=== PATIENT | male | born 1985 | race Caucasian/White ===

== ENCOUNTER 2020-06-14 16:06 | Emergency (ER) | payer OTHER, SELFPAY ==
[2020-06-14 16:23] VITALS: BP 148/83; PULSE 78; RESP 20; TEMP 36.5; O2SAT 98
--- NOTE | 2020-06-14 16:34 | ED.SKABFB ---
HPI - Skin/Abscess/Foreign Bdy General Chief complaint: Skin/Abscess/Foreign Body Stated complaint: splinter on right foot Time Seen by Provider: 06/14/20 16:22 Source: patient and RN notes reviewed Mode of arrival: ambulatory Limitations: no limitations History of Present Illness HPI narrative: Patient presents today complaining of a possible splinter to the bottom of his right foot. He did have a splinter enter the bottom of his foot 6 days ago at home from his hardwood floor. 2 days ago he was digging in his foot and removed a piece of wood and some pus drainage. He is unsure if any more would remains. He does have some pain with ambulation. He occasionally takes some Advil for symptoms. He is not up-to-date on his tetanus vaccine. Related Data Allergies Allergy/AdvReac Type Severity Reaction Status Date / Time No Known Allergies Allergy Verified 06/14/20 16:13 Review of Systems Review of Systems: Narrative: CONSTITUTIONAL: Denies body aches, fever, chills, or sweats. EYES: Denies visual changes, redness, or discharge. ENT: Denies rhinorrhea, congestion, sore throat, or otalgia. CARDIOVASCULAR: Denies chest pain, palpitations, or edema. RESPIRATORY: Denies cough or dyspnea. GASTROINTESTINAL: Denies abdominal pain, nausea, vomiting, or diarrhea. GENITOURINARY: Denies dysuria or hematuria. SKIN: Denies rash, itching. + Possible splinter to the bottom of the right foot MUSCULOSKELETAL: Denies back pain, joint pain, or myalgia. NEUROLOGIC: Denies headache, numbness, tingling, or weakness. PSYCH: Denies depression or anxiety. [facility] Past Medical History Medical History (Updated 06/14/20 @ 16:41 by Deena Mendoza, [facility], ) No pertinent past medical history Social History Social History Gender identity (if verbalized by the patient): Male Comments At time of signature, I have reviewed and agree with nursing past medical, surgical, social and family history unless otherwise noted. Please see nursing chart for further information. There is no relevant family history pertinent to the presenting complaint Exam Narrative: Exam Narrative: GENERAL: Well-appearing, well-nourished, and in no acute distress. HEAD: Normocephalic, atraumatic. EYES: EOMI. No redness or drainage. Conjunctivae normal. ENT: Mucous membranes pink and moist. NECK: Normal AROM. CHEST: No respiratory distress. EXTREMITIES: Normal range of motion. No edema. SKIN: Warm, dry, no rash. Capillary refill normal. Normal skin turgor. 2mm round calloused over wound to the plantar aspect of the ball of the right foot. This area is mildly tender to palpation. No obvious surrounding erythema or edema. No foreign body is obviously palpated under the skin. No drainage with palpation. Distal sensation intact. Capillary refill normal. Pedal pulse normal. NEURO: No focal deficits. Alert and oriented x3. Gait steady. PSYCH: Normal affect. No signs of depression or anxiety. Course Vital Signs Vital signs: Vital Signs Temperature 97.7 F 06/14/20 16:23 Pulse Rate 78 06/14/20 16:23 Respiratory Rate 20 06/14/20 16:23 Blood Pressure 148/83 H 06/14/20 16:23 Pulse Oximetry 98 06/14/20 16:23 Temperature 97.7 F 06/14/20 16:23 Pulse Rate 78 06/14/20 16:23 Respiratory Rate 20 06/14/20 16:23 Blood Pressure 148/83 H 06/14/20 16:23 Pulse Oximetry 98 06/14/20 16:23 Reviewed. Pt has been instructed to follow up with his PCP regarding his elevated blood pressure today. MDM - Skin/Abscess/Foreign Bdy MDM Narrative Medical decision making narrative: At this time, as the area has started to heal over, I am not going to open it for an exploratory procedure to search for a splinter that may or may not be present. I will place patient on antibiotics for possible infection and refer to podiatry Differential Diagnosis Differential diagnosis: Likely abscess of skin or subcutaneous tissue, cellulitis and other (Foreign body) Criti
[2020-06-14] MEDS: TETANUS,DIPHTHERIA,AC PERTUSSIS ADULT (0.5 ML) BOOSTRIX IM (16:37)
== END 2020-06-14 16:48 | disposition home or self-care (01) ==
PROVIDERS: Emergency Provider Nurse Practitioner
DX: S91.341A Puncture wound with foreign body, right foot, initial encounter (principal); X58.XXXA Exposure to other specified factors, initial encounter; Z23 Encounter for immunization
CPT/HCPCS: 90471; 90715; 99213; G0463

== ENCOUNTER 2022-09-15 10:19 | Emergency (ER) | payer OTHER, SELFPAY ==
[2022-09-15 10:26] VITALS: BP 123/76; PULSE 83; RESP 18; TEMP 36.4; O2SAT 100
--- NOTE | 2022-09-15 10:29 | ED.EYEPROB ---
HPI - Eye Problem General Chief complaint: Eye Problems Stated complaint: Eye Problem Time Seen by Provider: 09/15/22 10:30 Source: patient Mode of arrival: ambulatory Limitations: no limitations History of Present Illness HPI Narrative: Vladimir is a 36-year-old male patient presenting to clinic today with complaints of bilateral eye irritation/redness, and yellow discharge. He reports symptoms began approximately 8 days ago. States he has been using poly makes an eyedrops for 5 days and has not had any relief. Also reports that he has got some nasal congestion and a sore throat that started yesterday. He denies any fever or chills. Denies any known exposure to anyone with COVID, flu, or strep. He does not wear contacts. Related Data Allergies Allergy/AdvReac Type Severity Reaction Status Date / Time No Known Allergies Allergy Verified 09/15/22 10:25 Review of Systems Review of Systems: Pertinent positives per HPI. Patient denies any fever, chills, rash, headache, visual changes, dizziness, shortness of breath, chest pain, palpitations, nausea, vomiting, diarrhea, constipation, abdominal pain, or any urinary issues. [facility] Past Medical History Medical History No pertinent past medical history Social History Social History Gender identity (if verbalized by the patient): Male Comments At the time of my signature, I reviewed and agree with the nursing past medical, surgical, social, and family history. There is no relevant family history pertinent to the patient complaint. Exam Narrative: General: Well-developed, well nourished, in no apparent distress Head: Normocephalic, atraumatic Eyes: Pupils equally round and reactive to light bilaterally, EOM intact, sclera and conjunctive injected with yellow mucopurulent discharge, moderate lid swelling Ears: TMs intact and clear, ear canals clear, no drainage, grossly hearing normal. Nose: Nares patent, clear nasal discharge, no inflammation, no sinus tenderness. Mouth: Oropharynx red without lesions or masses, good dentition, MMM. Postnasal Neck: Supple, trachea midline, no enlargement of anterior or posterior cervical nodes, no thyroid masses or goiter palpable. Cardio: Regular rate and rhythm, s1 and s2 normal, no murmur appreciated. Resp: Clear to auscultation bilaterally anteriorly and posteriorly, no rhonchi, rales, wheezing or rubs Course Course Emergency Course: Portions of this record may have been created with voice recognition software. Level of Care: Express Care Visit Vital Signs Vital signs: Vital signs reviewed MDM - Eye Problem MDM Narrative Medical decision making narrative: At the time of visit patient is resting on the exam table. Strep screen was obtained. I suspect patient has bacterial versus viral conjunctivitis. Will send in prescription TobraDex eyedrops. Supportive measures discussed with the patient he voiced understanding of discharge instructions and agrees to treatment plan. Differential Diagnosis Differential diagnosis: Likely corneal abrasion, conjunctivitis, acute iritis, periorbital cellulitis, subconjunctival hemorrhage, corneal ulcer, ruptured globe and other (Upper respiratory infection, pharyngitis, strep pharyngitis, viral syndrome) Discharge Plan Discharge Clinical Impression: Conjunctivitis, Upper respiratory infection, Pharyngitis Patient Disposition: Home, Self-Care Condition: Stable Instructions: Antibiotic Form, Pharyngitis (ED), Upper Respiratory Infection (ED), Conjunctivitis (ED) Additional Instructions: Strep screen was negative in the clinic today. We will send for culture if this comes back positive we will contact him place you on antibiotics at that time. Conjunctivitis is considered contagious for 24 hours while on the antibiotic. Practice good hand washing alice
== END 2022-09-15 10:46 | disposition home or self-care (01) ==
PROVIDERS: Emergency Provider Nurse Practitioner Family
DX: H10.9 Unspecified conjunctivitis (principal); J06.9 Acute upper respiratory infection, unspecified; J02.9 Acute pharyngitis, unspecified
CPT/HCPCS: 87081; 87880; 99213; G0463

== ENCOUNTER 2022-11-02 10:25 | Emergency (ER) | payer OTHER, SELFPAY ==
[2022-11-02] VITALS (13 sets, daily range): BP systolic 125–141; BP diastolic 87–91; PULSE 61–92; RESP 15–20; TEMP 36.6; O2SAT 93–100
--- NOTE | ~2022-11-02 | XR_ITS ---
Portable chest x-ray Comparison: None Clinical History: Chest pain Findings: Lungs are clear, without focal consolidation or pleural effusion. Cardiomediastinal silho uette is unremarkable. Bones and soft tissues are unremarkable. Impression: Normal chest. Reviewed, dictated and finalized at location M. Impression: Normal chest.
--- NOTE | 2022-11-02 10:34 | ECG_ITS ---
Measurements Intervals [place] Rate: 82 P: 40 ID: [id number] QRS: 51 QRSD: 91 T: 20 QT: 366 QTc: 428 Interpretive Statements SINUS RHYTHM NONSPECIFIC T-WAVE ABNORMALITY- INFERIOR LEADS BASELINE ARTIFACT- V3-V6 BORDERLINE ECG NO PREVIOUS ECG AVAILABLE FOR COMPARISON Electronically Signed On 11-02-2022 11:31:53 CDT by Froy Gore D.O.
[2022-11-02 10:47] LABS: Basophils Percent Auto 0.7 % (0.2-1.2); Eosinophils Absolute Auto 0.2 K/mm3 (0-0.3); Eosinophils Percent Auto 2.9 % (0-4.4); Hemoglobin 15.8 g/dL (14.0-18.0); Immature Granulocyte Absolute 0.02 K/mm3 (0.00-0.031); Immature Granulocyte Percent A 0.3 % (0-0.5); Lymphocytes Absolute Auto 1.45 K/mm3 (0.9-3.2); Lymphocytes Percent Auto 24.8 % (18.3-44.2); Mean Corpuscular HGB Conc 32.9 g/dl (32-36); Mean Corpuscular Hemoglobin 29.8 pg (26-34); Mean Corpuscular Volume 90.4 fl (80-100); Mean Platelet Volume 9.2 fl (7.4-10.4); Monocytes Absolute Auto 1.1 K/mm3 (0.1-0.6); Monocytes Percent Auto 18.8 % (2.6-8.5); Neutrophils Absolute Auto 3.1 K/mm3 (1.3-6.7); Neutrophils Percent Auto 52.5 % (45.5-73.1); Platelet Count Result 240 k/mm3 (150-375); Red Blood Count 5.31 M/mm3 (4.6-6.20); Red Cell Distribution Width 12.8 % (11.5-14.5); White Blood Count 5.8 K/mm3 (4.5-10.0)
[2022-11-02 10:58] LABS: Alanine Aminotransferase 29 U/L (6-50); Albumin Level 4.3 g/dL (3.5-5.1); Alkaline Phosphatase 56 U/L (38-126); Anion Gap 3 mmol/L (8-16); Aspartate Amino Transferase 27 U/L (17-59); Bilirubin,Total 0.6 mg/dL (0.2-1.3); Blood Urea Nitrogen 12 mg/dL (9-20); Calcium 8.9 mg/dL (8.4-10.2); Carbon Dioxide 32 mmol/L (22-30); Chloride 101 mmol/L (98-107); Estimated CRCL calculation 140 ml/min; Estimated Glomerular Filt Rate > 60; Glucose 116 mg/dL (65-110); Lipase 59 U/L (23-300); Potassium 4.4 mmol/L (3.4-5.0); Sodium 136 mmol/L (137-145)
[2022-11-02 10:59] LABS: Prothrombin Time 13.3 Seconds (11.1-14.7)
[2022-11-02 11:00] LABS: Partial Thromboplastin Time 30.2 SECONDS (22.3-36.8)
[2022-11-02] MEDS: ASPIRIN 81 MG CHEWABLE TABLET 324 MG PO (11:02)
[2022-11-02 11:03] LABS: D Dimer 0.39 ug/mL (<0.48)
[2022-11-02 11:09] LABS: Troponin I < 0.012 ng/mL (0.000-0.034)
--- NOTE | 2022-11-02 11:26 | ED.CHESTPAIN ---
HPI - Chest Pain General Chief Complaint: Chest Pain Stated Complaint: chest pain Time Seen by Provider: 11/02/22 10:44 History of Present Illness HPI narrative: 37-year-old male reports for evaluation of intermittent right-sided anterior chest pain going on for 6 months to 1 year, worsening over the past 6 days. Patient states the pain is a dull ache and was occurring every other month, 1 time a month. States the past 6 days the pain is occurring 3-4 times a day, every other day. States the pain does not radiate anywhere and last approximately 10 minutes then spontaneously resolves. He states that it seems that the pain comes on while he is at work, he is a construction millwright. Denies other aggravating or alleviating factors. States when the pain comes on, he tries to stretch out his chest with some improvement. He denies abdominal pain, sensation of indigestion, shortness of breath, nausea or vomiting, history of cardiac disease, fever, lower extremity edema or pain, history of VTE. He does report a cough that started this morning. Denies family history of cardiac disease or CVA. No history of hypertension, diabetes, hyperlipidemia. Denies feeling anxious or increased dressers. Related Data Allergies Allergy/AdvReac Type Severity Reaction Status Date / Time No Known Allergies Allergy Verified 09/15/22 10:25 Review of Systems Review of Systems: CONSTITUTIONAL: Denies fever, chills EYES: Denies visual changes, redness, or discharge. ENT: Denies rhinorrhea, congestion, sore throat, or otalgia. CARDIOVASCULAR: See HPI RESPIRATORY: Denies cough or dyspnea. GASTROINTESTINAL: Denies abdominal pain, nausea, vomiting, or diarrhea. GENITOURINARY: Denies dysuria or hematuria. SKIN: Denies rash or itching. MUSCULOSKELETAL: Denies back pain, joint pain, or myalgia. NEUROLOGIC: Denies headache, numbness, dizziness, or weakness. PSYCHIATRIC: Denies anxiety or depression. [facility] Past Medical History Medical History No pertinent past medical history Social History Social History Gender identity (if verbalized by the patient): Male Exam Narrative: GENERAL: Well-appearing, in no acute distress. Patient resting comfortably in exam bed. He is pleasant and conversational HEAD: Normocephalic EYES: PERRLA ENT: Nares clear. Mucous membranes moist. Oropharynx without tonsillar hypertrophy exudate or other lesions. NECK: Supple. CHEST: No respiratory distress. Clear to auscultation, no adventitious breath sounds. No tenderness to chest wall with palpation. HEART: Regular rate and rhythm. No murmur heard. Normal peripheral pulses. ABDOMEN: Soft, nontender, normal active bowel sounds. No CVA tenderness. EXTREMITIES: Normal range of motion. No edema. SKIN: Warm, dry, no rash. NEURO: No focal deficits. Alert and oriented x3. PSYCH: Normal mood and affect. Course Vital Signs Vital signs: Vital Signs Temperature 97.8 F 11/02/22 10:30 Pulse Rate 87 11/02/22 10:30 Respiratory Rate 16 11/02/22 10:30 Blood Pressure 141/91 H 11/02/22 10:30 Pulse Oximetry 100 11/02/22 10:30 Temperature 97.8 F 11/02/22 10:30 Pulse Rate 68 11/02/22 14:21 Respiratory Rate 18 11/02/22 14:21 Blood Pressure 134/88 11/02/22 13:16 Pulse Oximetry 96 11/02/22 14:21 MDM - Chest Pain MDM Narrative Medical decision making narrative: 37-year-old male reports for evaluation of intermittent right-sided anterior chest pain going on for 6 months to 1 year, worsening over the past 6 days. Vital stable. Patient is well-appearing on exam. His vitals are stable. EKG shows normal sinus rhythm without ST elevations or depressions. Troponin 1 and 2 negative. D-dimer normal and well score is low risk for PE. CBC and chemistries unremarkable. Chest x-ray without acute cardiopulmonary findings. Pain seems to
[2022-11-02 14:07] LABS: Troponin I < 0.012 ng/mL (0.000-0.034)
== END 2022-11-02 14:40 | disposition home or self-care (01) ==
PROVIDERS: Preventive Medicine Aerospace Medicine; Emergency Provider Physician Assistant
DX: R07.89 Other chest pain (principal)
CPT/HCPCS: 36415; 71045; 80053; 83690; 84484; 85025; 85380; 85610; 85730; 93005; 99284; A9270

== ENCOUNTER 2022-11-02 15:14 | Emergency (ER) | payer OTHER, SELFPAY ==
[2022-11-02 15:15] VITALS: BP 126/77; PULSE 75; RESP 16; TEMP 36; O2SAT 98
--- NOTE | 2022-11-02 15:24 | ECG_ITS ---
Measurements Intervals [place] Rate: 56 P: 39 MD: 188 QRS: 66 QRSD: 90 T: 41 QT: 394 QTc: 381 Interpretive Statements SINUS BRADYCARDIA BASELINE ARTIFACT- I, II, AVR, AVL BORDERLINE ECG COMPARED TO ECG 11/02/2022 10:31:30 SINUS BRADYCARDIA NOW PRESENT Electronically Signed On 11-03-2022 8:41:58 CDT by Froy Gore D.O.
[2022-11-02 15:26] VITALS: PULSE 64
--- NOTE | 2022-11-02 15:32 | PC.NURSE ---
EDP made aware of pt condition
--- NOTE | 2022-11-02 17:50 | ED.NEUROSD ---
HPI - Neuro Symptoms/Deficit General Chief Complaint: Neuro Symptoms/Deficit Stated Complaint: ?loss of vision Time Seen by Provider: 11/02/22 16:23 History of Present Illness HPI Narrative: Patient is a 37-year-old male presenting with a presyncopal episode. Patient was just here earlier this morning for chest pain. He was discharged and he went straight to [facility]. On his way he became lightheaded and had tunnel vision. States that he did not actually pass out. He was able to stop and puller over. He called his who thought he sounded tired. He came back in for evaluation. He denies further chest pain or shortness of breath. States that he was sweaty after this event which improved. He denies numbness or weakness. No slurred speech or facial droop. No difficulty ambulating. No vomiting or diarrhea. No further complaints. Related Data Allergies Allergy/AdvReac Type Severity Reaction Status Date / Time No Known Allergies Allergy Verified 09/15/22 10:25 Review of Systems Review of Systems: All systems reviewed & are unremarkable except as noted in HPI and below PMFSH Past Medical History Medical History No pertinent past medical history Social History Social History Gender identity (if verbalized by the patient): Male Exam Narrative: GENERAL: Well-appearing, well-nourished, and in no acute distress. HEAD: Normocephalic, atraumatic. EYES: PERRLA and EOMI. ENT: Nares clear, no rhinorrhea or epistaxis. Mucous membranes moist. NECK: Supple. CHEST: Clear to auscultation. No respiratory distress. HEART: Regular rate and rhythm. No murmur heard. Normal peripheral pulses. ABDOMEN: Soft, nontender, nondistended EXTREMITIES: Normal range of motion. No edema. SKIN: Warm, dry, no rash. NEURO: No focal deficits. Alert and oriented x3. 5 out of 5 strength in all extremities, no sensory deficits, no pronator drift, coordination is intact PSYCH: Normal mood and affect. Course Vital Signs Vital signs: Vital Signs Temperature 96.8 F L 11/02/22 15:15 Pulse Rate 75 11/02/22 15:15 Respiratory Rate 16 11/02/22 15:15 Blood Pressure 126/77 11/02/22 15:15 Pulse Oximetry 98 11/02/22 15:15 Oxygen Delivery Room Air 11/02/22 15:15 Temperature 96.8 F L 11/02/22 15:15 Pulse Rate 66 11/02/22 18:26 Respiratory Rate 18 11/02/22 18:26 Blood Pressure 119/72 11/02/22 18:26 Pulse Oximetry 98 11/02/22 18:26 Oxygen Delivery Room Air 11/02/22 15:15 MDM - Neuro Symptoms/Deficit MDM Narrative Medical decision making narrative: Patient is a 37-year-old male presenting with near syncope. Vitals are within normal limits. Patient is very well-appearing and in no acute distress. Patient has been observed for several hours without any recurrence of his symptoms. He is tolerating p.o. intake. Feels at baseline. I reviewed his blood work from earlier this morning and there are no abnormalities. His EKG and chest x-ray are normal. Repeat EKG shows sinus bradycardia, normal axis and intervals, no acute ischemic changes. Similar to prior. Based on the description of his symptoms, I most suspect a vasovagal syncope episode. I do not feel that further work-up is necessary at this time given his reassuring vitals, physical exam, earlier blood work. Advised that he try to increase his fluid intake, he states that he does work outside in the heat. Advise close PCP follow-up. Strict return precautions were given. Patient voiced understanding and is agreeable with plan. Discharged in stable condition. Differential Diagnosis Differential diagnosis: Likely other (vasovagal syncope, dehydration) Medical Records Attestation: I reviewed the patient's medical records. Lab Data Attestation: I reviewed the patient's lab results. Critical Care Time Critical Care Time Critical Care Time:
[2022-11-02 18:26] VITALS: BP 119/72; PULSE 66; RESP 18; O2SAT 98
== END 2022-11-02 18:27 | disposition home or self-care (01) ==
PROVIDERS: Emergency Provider Emergency Medicine
DX: R55 Syncope and collapse (principal)
CPT/HCPCS: 93005; 99283

== ENCOUNTER 2023-12-24 19:05 | Emergency (ER) | payer OTHER, SELFPAY ==
--- NOTE | ~2023-12-24 | XR_ITS ---
EXAMINATION: XR abdomen/kub 1V DATE: 12/24/2023 19:43 INDICATION: Low abdominal cramping. TECHNIQUE: A supine view of the abdomen on 2 radiographs was obtained. COMPARISON: None. FINDINGS: There are no dilated loops of bowel. There is a small volume of stool in the colon. There a re phleboliths in the pelvis. IMPRESSION: 1. Normal bowel gas pattern. Reviewed, dictated and finalized at location A.
--- NOTE | 2023-12-24 19:21 | ED.NAVMDI ---
HPI - Nausea/Vomiting/Diarrhea General Chief complaint: Nausea/Vomiting/Diarrhea Stated complaint: Stomach Pain Time Seen by Provider: 12/24/23 19:21 Source: patient Mode of arrival: ambulatory Limitations: no limitations History of Present Illness HPI Narrative: 38-year-old male presents with lower abdominal cramping, gas pain, small bowel movements since eating [place] food last night. Denies nausea vomiting diarrhea. afebrile. No chills. States pain was worse earlier today but somewhat better now. No decrease in appetite. Had cereal for breakfast, chicken tacos for lunch. Denies urinary complaints. Denies testicular pain, swelling. All systems reviewed and negative except as noted above. Related Data Allergies Allergy/AdvReac Type Severity Reaction Status Date / Time No Known Allergies Allergy Verified 12/24/23 19:22 Review of Systems Review of Systems: CONSTITUTIONAL: Denies fever, chills, or sweats. EYES: Denies visual changes, redness, or discharge. ENT: Denies rhinorrhea, congestion, sore throat, or otalgia. CARDIOVASCULAR: Denies chest pain, palpitations, or edema. RESPIRATORY: Denies cough or dyspnea. GASTROINTESTINAL: Reports lower abdominal cramping and gas. Denies nausea, vomiting, or diarrhea. GENITOURINARY: Denies dysuria or hematuria. SKIN: Denies rash or itching. MUSCULOSKELETAL: Denies back pain, joint pain, or myalgia. NEUROLOGIC: Denies headache, numbness, or weakness. PSYCHIATRIC: Denies anxiety or depression. All other systems reviewed are negative, except as documented in HPI. PMFSH Past Medical History Medical History No pertinent past medical history Social History Social History Gender identity (if verbalized by the patient): Male Comments At time of signature, agree with nursing past medical, surgical, social and family history. There is no relevant family history pertinent to the presenting complaint. Exam Narrative: GENERAL: This is a well-nourished, well-developed patient, in no apparent distress. HEAD: normocephalic, atraumatic. EYES: PERRL. Sclera clear/white. Vision is grossly intact. EARS: External ears normal NOSE: External nose normal NECK: Neck supple, non-tender without lymphadenopathy, masses or thyromegaly. CARDIOVASCULAR: Regular rate and rhythm without murmurs, gallops, or rubs. RESPIRATORY: Clear to auscultation. Breath sounds equal bilaterally. No wheezes, rales, or rhonchi. GASTROINTESTINAL: Abdomen soft, non-tender, nondistended. Bowel sounds are active. No hepato-splenomegaly, or palpable masses. No guarding. SKIN: warm, Dry, intact with no suspicious lesions or rash, good texture and turgor. NEURO: awake, alert, and oriented to person, place and time. There were no obvious focal neurologic abnormalities. EXTREMITIES: No joint tenderness, effusion, or edema noted. Course Course Level of Care: Express Care Visit Vital Signs Vital signs: reviewed MDM - Nausea/Vomiting/Diarrhea MDM Narrative Medical decision making narrative: no abdominal tenderness on exam. After completing patient's abdominal exam this HAND STAP[employer]ER asked him if he had any tenderness and he stated gas not if I did not say that I had any . urinalysis normal. Abdominal x-ray is negative for bowel obstruction. Discussed results with patient. Will prescribe Bentyl and simethicone for abdominal cramping and bloating. Recommend he go to the ER for any worsening of his symptoms. Patient is aware of diagnosis, understands and agrees to treatment plan. Anticipatory guidance given. Patient agrees to follow-up as directed and is aware of reasons to seek care at the emergency department. Portions of this record may have been created with voice recognition software Differential Diagnosis Differential diagnosis: Likely gastroenteritis and other ( Diverticulitis, sma
[2023-12-24 19:23] VITALS: BP 126/69; PULSE 73; RESP 16; TEMP 36.6; O2SAT 100
[2023-12-24 19:57] LABS: EDUAAPPEAR Clear; EDUABILI Negative; EDUABLOOD Negative; EDUACOLOR1 Yellow; EDUAGLUCOSE Negative; EDUAKETONE Negative; EDUALEUKO Negative; EDUANITRATE Negative; EDUAPH 6.5; EDUAPROTEIN Negative; EDUAUROBILI 0.2
== END 2023-12-24 20:04 | disposition home or self-care (01) ==
PROVIDERS: Emergency Provider Nurse Practitioner Family
DX: R14.1 Gas pain (principal)
CPT/HCPCS: 74018; 81003; 99213; G0463